=== PATIENT | male | born 1965 | race Caucasian/White ===

== ENCOUNTER → 2016-08-28 | Outpatient (CLI) | payer BC ==
[~2016-08-28] MED LIST: ANDROGEL2.5 GM TOP; ASPIRIN81 M2 PO; BENICAR HCT 201 EACH PO; BISOPROLOL FUMAR5 MG PO; CLONIDINE0.1 PO; FLONASE16 GM NASAL; NEURONTIN 300300 M1 PO; NORVASC 5 MG TAB5 MG PO; PROAIR HFA8.5 GM INH; SUPPLEMENTS; TOPROL XL25 MG PO; XARELTO15 MG PO
== END ==
LOC: ULTRA 08:57
DX: D36.13 Benign neoplasm of peripheral nerves and autonomic nervous system of lower limb, including hip (principal)

== ENCOUNTER 2016-10-02 21:09 | Emergency (ER) | payer BC ==
[~2016-10-02] VITALS: Ht 182.9 cm; Wt 117.9 kg
--- NOTE | ~2016-10-02 | HC ---
[facility] [place] [address] CONSULTATION Name: BHARATH PALACIOS Room #: DEP [facility] [id number] Admission: 10/02/16 Attend Phys: Discharge: 10/03/16 Date of : 67 Report #: [id number] THIS REPORT FOR: //name// CC: Sebastian Spivey DATE OF SERVICE: 10/02/2016 HISTORY OF PRESENT ILLNESS: This is a 50-year-old male patient who was seen by me with somewhat of an unusual symptoms. Initially, the family said the symptoms started at 8:00 p.m. When further history is taken, the symptom actually started at 6:00 p.m. At 6:00 p.m., he noticed the symptom as if he has an allergic reaction. He had become agitated at that time and he had some dry heaves, no respiratory difficulty, but subsequently it was noticed that he had difficulty with finer coordination and loss of strength in the right upper extremity. That was noticed at 8:00 at night. The patient was brought to emergency room. He was initially worked up by Dr. Spivey and subsequently neurology consult was called. When I was called initially, it looks like the patient's symptoms were profound in coordination and it looked like pretty good candidate. When I was called initially, it was my impression on the phone that this patient is tPA candidate and I suggested preparing him for tPA, but transferring him to [facility] because of this being cerebellar CVA and if the bleed that is usually catastrophic. Subsequently, I came to emergency room and took further history. The history I got is that the symptom probably started around 6:00 p.m. REVIEW OF SYSTEM: Has indicated that he had aortic dissection and pretty significant surgery that time and apparently had multiple TIAs and mini-strokes at that time. 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 He did have memory issues and speech issues, but that became better and he has been functional. Last time he went to [facility]. He apparently had a pulmonary embolus, which is asymptomatic. Two weeks ago he went to [facility] again. He took Xarelto, but he took it only 2 days and he has not taken then for almost 2 weeks now. He has taken blood thinner after his pulmonary embolus, but did not take it since then. This was his relevant review of systems. PAST MEDICAL HISTORY: Positive for aortic dysfunction, but he follows up with the policy change clerk, but has not had any recurrence of dissection there, and I do not believe that is a problem there. FAMILY HISTORY: Positive for aneurysms. 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 PHYSICAL EXAMINATION: Examination was carried out numerous times. On my first examination, he has improved significantly and continued to maintain that [facility] [address] [place] [address] CONSULTATION Name: SUZANNEBHARATH W Room #: DEP Amy#: [id number] Admission: 10/02/16 Attend Phys: Discharge: 10/03/16 Date of : 67 Report #: [id number] improvement. He is alert, responsive. His speech, concentration, fund of knowledge and memory is at his baseline. His cranial nerve examinations 2-12 indicate right visual field deficit, which is old but is otherwise unremarkable. He does not have any facial palsy. Nystagmus may be minimum on both directions, but it may be gaze-induced nystagmus. When I saw him, he has only minimally decreased strength in the right upper extremity. His sensation is unremarkable there. I did coordination test on him multiple times. His xzoixd-dx-hamr was much improved compared to what I was described initially, but on my last examination on hjyayp-bh-cjdf, it was normal, but he still does little bit better on the left side as compared to the right side. His rapid finger tapping is similar. It is a minor difference on both sides. So he does still have minor cerebellar signs on the right side, but is markedly improved. This examination was tried anywhere between 5-10 times and he continued to maintain his improvement. He has no meningeal sign. His CT head was reviewed and it showed right posterior parietal and occipital infarcts, but was otherwise unremarkable. There does not appear to be any acute changes. 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 His management is difficult. There are multiple questions about his management. Firstly, he had symptoms at 6:00 p.m. That was the onset of his symptoms. People with posterior fossa cerebrovascular accident can present with nonspecific symptoms at the moment and that is the possibility and that is what he had at that time. If the time of onset is counted at 6:00 p.m., then he is outside the window for any intervention with tPA or even other interventions. The other problem in this patient is that his symptoms have rapidly improved. He still has cerebellar symptoms there, but they are minor. 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 I did not make him walk, but the nurses have made him walk and he is able to ambulate reasonably well. People with this much cerebellar symptoms and if they stabilize, they do reasonably well, although they are left with some coordination problem. The question is whether the risk of tPA is worth taking with relatively minor symptoms and there is problem in this situation. I discussed that problem frankly with family. The problem is that if they become worse later on, then tPA cannot be given or even intervention cannot be done. The tPA does have benefit, although benefits are not universal and if these patients bleed in the cerebellum, that can be potentially fatal as posterior fossa is a tight structure and any bleed in that area is catastrophic. We discussed multiple plans with the patient and the family. When his symptoms were pretty prominent, the plan was to give him tPA and send him to [facility]. I talked to [facility] myself, and at this time, the situation is difficult. I discussed with the family that they have an option of going either way. We can give tPA and send it to the [facility], but presently the residual symptoms are so mild that the other option of not doing any [facility] [address] [place] [address] CONSULTATION Name: BHARATH PALACIOS Room #: DEP Amy#: [id number] Admission: 10/02/16 Attend Phys: Discharge: 10/03/16 Date of : 67 Report #: [id number] intervention and getting a stat imaging study of the vessel is there. I talked to them very clearly advantages and disadvantages, and I talked to them that there are advantages and disadvantages of both. After discussing all their options with them very clearly, they were pretty definite that they want to hold the tPA and I again discussed very clearly with them the advantages and disadvantages of that. I did ask the emergency room doctor to give this patient IV fluid. Keep his blood pressure high. Get a stat MRI of the brain and MRA of the head and neck. If he still has some residual clot or any basilar artery thrombosis, then he needs to be transferred to [facility]. If not, they will like us to keep him here and we will do that depending upon how big his cerebellar stroke is. He does need the workup for the chest. His pulmonary embolus last time was asymptomatic. That needs to be addressed. Similarly, the question needs to be addressed whether he has anything on his aorta. That is one of the reason I did not do CT angiogram in this patient because CT angiogram of the chest need to be done and double dye in the patient who had renal failure in the past and presently whose GFR is only 46 will not be very good. This was a very difficult patient and all his options were discussed with him and unfortunately the effect will be unpredictable and we will await the MRI in this patient, but he will need the chest workup. <ELECTRONICALLY SIGNED> By: Channing Botello MD 10/03/16 [id number] [id number] Channing Botello MD /nt
--- NOTE | ~2016-10-02 | EKG ---
[place] [address] [facility] [place] [address] ELECTROCARDIOGRAM REPORT Name: BHARATH PALACIOS Room #: [facility]#: [id number] Admission: 10/02/16 Attend Phys: Discharge: Date of : 67 Report #: [id number] THIS REPORT FOR: //name// [facility] ED Test Date: 2016-10-02 Test Time: 21:38:37 Pat Name: BHARATH PALACIOS Department: Room: Gender: Wool Carder: SOWMYA : 1965 Requested By: Abbie Spivey Order Number: [id number] MD: Flo Kaur Measurements Intervals [place] Rate: 67 P: 39 AK: 155 QRS: -33 QRSD: 151 T: 6 QT: 426 QTc: 450 Interpretive Statements Sinus rhythm Left atrial enlargement Right bundle branch block Left ventricular hypertrophy Compared to ECG 11/18/2012 14:56:20 Atrial abnormality now present Sinus bradycardia no longer present Electronically Signed On 10-02-2016 22:10:04 CDT by Flo Kaur [email or web address] <ELECTRONICALLY SIGNED> By: Flo Kaur MD 10/02/16 [id number] Flo Kaur MD /MARTA
[2016-10-02 21:32] LABS: HEMOGLOBIN 17.2 gm/dL (14.0-18.0); RBC 5.56 mil/uL (4.50-6.00)
[2016-10-02 21:33] LABS: ABSOLUTE NEUTROPHILS 4.5 thou/uL (1.4-8.2); BASOPHILS 1.1 % (0.0-2.0); EOSINOPHILS 0.7 % (0.0-3.0); HEMATOCRIT 50.5 % (42.0-52.0); LYMPHOCYTES 23.1 % (24.0-44.0); MCH 30.9 pg (26.0-34.0); MCV 90.9 fL (80.0-100.0); MONOCYTES 9.4 % (1.0-8.0); PLATELET COUNT 137 thou/uL (150-400); POLYS 65.7 % (36.0-66.0); RDW 14.7 % (10.5-14.5); WBC 6.9 thou/uL (4.0-11.0)
[2016-10-02 21:35] LABS: CALCIUM 8.7 mg/dL (8.5-10.1); CREATININE 1.6 mg/dL (0.7-1.3); POTASSIUM 4.3 mmol/L (3.5-5.1)
[2016-10-02 21:38] LABS: MANUAL DIFF NO
[2016-10-02 23:21] LABS: APTT 26.8 Seconds (24.5-32.8); INR 1.1
== END 2016-10-03 03:31 | disposition home or self-care (01) ==
LOC: ER 21:09
PROVIDERS: Emergency Medicine
DX: G45.8 Other transient cerebral ischemic attacks and related syndromes (principal); F10.99 Alcohol use, unspecified with unspecified alcohol-induced disorder; Z88.8 Allergy status to other drugs, medicaments and biological substances; Z98.890 Other specified postprocedural states

== ENCOUNTER → 2018-09-05 | Outpatient (CLI) | payer BC ==
[~2018-09-05] VITALS: Ht 182.9 cm; Wt 120.3 kg
[~2018-09-05] MED LIST changes: +HYZAAR 50-12.51 EACH PO; +LIPITOR10 MG PO
[2018-09-05 14:10] VITALS: BP 113/67
== END | disposition home or self-care (01) ==
LOC: CATH 06:24
DX: I87.2 Venous insufficiency (chronic) (peripheral) (principal); I87.1 Compression of vein; R22.43 Localized swelling, mass and lump, lower limb, bilateral; E78.5 Hyperlipidemia, unspecified; I10 Essential (primary) hypertension; Z86.711 Personal history of pulmonary embolism; Z79.01 Long term (current) use of anticoagulants; Z88.8 Allergy status to other drugs, medicaments and biological substances; Z86.73 Personal history of transient ischemic attack (TIA), and cerebral infarction without residual deficits; Z79.899 Other long term (current) drug therapy; Z98.890 Other specified postprocedural states; Z79.82 Long term (current) use of aspirin